=== PATIENT | male | born 1940 | race Caucasian/White ===

== ENCOUNTER 2016-11-06 07:25 | Outpatient (CLI) | payer MEDICARE, OTHER | END 2016-11-06 07:26 | disposition home or self-care (01) | DX: E78.5 Hyperlipidemia, unspecified (principal); E11.9 Type 2 diabetes mellitus without complications; Z12.5 Encounter for screening for malignant neoplasm of prostate; I25.10 Atherosclerotic heart disease of native coronary artery without angina pectoris; E29.1 Testicular hypofunction; I10 Essential (primary) hypertension | CPT/HCPCS: 36415; 80053; 80061; 83036; 84403; G0103 ==

== ENCOUNTER 2016-11-27 12:53 | Outpatient (CLI) | payer MEDICARE, OTHER | END 2016-11-27 12:54 | disposition home or self-care (01) | DX: R01.1 Cardiac murmur, unspecified (principal); I35.0 Nonrheumatic aortic (valve) stenosis; I51.7 Cardiomegaly; I10 Essential (primary) hypertension; E78.5 Hyperlipidemia, unspecified; Z95.5 Presence of coronary angioplasty implant and graft; Z87.891 Personal history of nicotine dependence ==

== ENCOUNTER 2016-12-25 16:00 | Outpatient (CLI) | payer MEDICARE, OTHER | END 2016-12-25 23:59 | disposition home or self-care (01) | LOC: LAB.R 16:00 | PROVIDERS: ATTEND Family Medicine | DX: R10.9 Unspecified abdominal pain (principal) | CPT/HCPCS: 87086 ==

== ENCOUNTER 2016-12-26 16:40 | Outpatient (CLI) | payer MEDICARE, OTHER ==
--- NOTE | 2016-12-27 18:20 | CT Report ---
NONCONTRAST CT SCAN OF THE ABDOMEN AND PELVIS: 12/26/2016 CLINICAL HISTORY: Left flank pain. COMPARISON: None. TECHNIQUE: Axial, coronal and sagittal reconstruction images of the abdomen and pelvis were done at 5 x 5 mm intervals. In accordance with CT protocol optimization, one or more of the following dose reduction techniques w ere utilized for this exam: automated exposure control, adjustment of mA and/or KV based on patient size, or use of iterative reconstructive technique. FINDINGS: Mild atelectasis is seen in the left lower lobe. Calcification is seen in the region of t he aortic valve with normal cardiac size. Liver appears normal. Spleen is normal. Pancreas shows no significant abnormality. Surgical clips are seen in the elisabet hepatis related to prior cholecystectomy. No significant dilatation of the com mon hepatic and common bile ducts is noted. Adrenal glands are normal. Right kidney demonstrates a benign cyst in the mid portion of this kidney measuring 0.9 cm. There is a suggestion of a minute calculus in association with the upper pole martha ix of the right kidney. Right ureter shows no calculi. Left kidney demonstrates two benign peripelv ic cysts. These measure 2.0 cm and 1.5 cm, respectively. There is also a benign cyst along the medi al inferior aspect of the left kidney. Pyelocalyceal system is not distended. There is a 1.3 cm x 1 .0 cm calculus in a lower pole xochitl of the left kidney. Left ureter shows no significant abnormalit y. Bladder appears normal. Patient's prostate demonstrates mild to moderate enlargement with calcif ication. Periaortic and pericaval region demonstrates vascular calcification in the abdominal aorta and its il iac branches. Small abdominal aortic aneurysm is seen in the infrarenal aspect of the abdominal aorta measuring 3 c m x 3 cm. Bowel gas pattern demonstrates the colon to show no diverticula. The appendix is not definitely seen . Small bowel appears normal. Bones demonstrate osteoarthritis of the lumbar spine with significant degenerative disk disease seen at L2-3, L4-5 and L5-S1. Evidence of bilateral laminectomy is noted at L3, L4 and L5. IMPRESSION: MINUTE CALCULUS IS SUGGESTED IN THE UPPER POLE OF THE RIGHT KIDNEY. A 1.3 CM X 1.0 CM CALCULUS IS NOTED IN THE LOWER POLE XOCHITL OF THE LEFT KIDNEY. TWO SMALL LEFT PERIPELVIC CYSTS ARE SEEN WITH A SMALL CYST ALSO NOTED IN THE RIGHT KIDNEY. SURGICAL CLIPS ARE NOTED IN THE ELISABET HEPATIS A RESULT OF A PRIOR CHOLECYSTECTOMY. MILD ABDOMINAL AORTIC ANEURYSM INVOLVING THE INFRARENAL PORTION OF THE ABDOMINAL AORTA AND MEASURING 3 CM X 3 CM. SIGNIFICANT DEGENERATIVE DISK DISEASE IS NOTED IN THE LUMBAR SPINE WITH BILATERAL LAMINECTOMY NOTED A T L3, L4 AND L5. JOB #: [id number] EXT JOB #:[id number]
== END 2016-12-26 16:41 | disposition home or self-care (01) ==
LOC: DI 16:40
PROVIDERS: ATTEND Family Medicine
DX: N20.0 Calculus of kidney (principal); N28.1 Cyst of kidney, acquired; Z90.49 Acquired absence of other specified parts of digestive tract; I71.4 Abdominal aortic aneurysm, without rupture; M51.36 Other intervertebral disc degeneration, lumbar region
CPT/HCPCS: 74176

== ENCOUNTER 2017-06-26 08:00 | Outpatient (CLI) | payer MEDICARE, OTHER ==
[2017-06-26 13:12] LABS: ALBUMIN/GLOBULIN RATIO 1.4 (1.0-2.2); BILIRUBIN,TOTAL 0.6 mg/dL (0.2-1.0); BUN - BLOOD UREA NITROGEN 28 mg/dL (6-20); CALCIUM 9.2 mg/dL (8.5-10.3); CARBON DIOXIDE - CO2 23 mmol/L (21-32); CHLORIDE 105 mmol/L (101-111); CHOL/HDL RATIO 3.3 (<5.0); CHOLESTEROL 174 mg/dL; CREATININE 1.1 mg/dL (0.6-1.2); GFR - MDRD 65 (>89); GLUCOSE 126 mg/dL (70-100); HDL CHOLESTEROL 52 mg/dL; LDL/HDL RATIO 1.8 (<3.6); POTASSIUM 4.1 mmol/L (3.5-5.0); SODIUM 135 mmol/L (135-145); TOTAL PROTEIN 7.3 g/dL (6.7-8.2); TRIGLYCERIDES 157 mg/dL; VLDL CHOLESTEROL 31 mg/dL
[2017-06-26 13:26] LABS: HEMOGLOBIN A1C 0.65 g/dL
== END 2017-06-26 08:01 | disposition home or self-care (01) ==
LOC: LAB.WCP 08:00
PROVIDERS: ATTEND Family Medicine
DX: I25.10 Atherosclerotic heart disease of native coronary artery without angina pectoris (principal); R01.1 Cardiac murmur, unspecified; E11.9 Type 2 diabetes mellitus without complications; E29.1 Testicular hypofunction; I10 Essential (primary) hypertension; E78.5 Hyperlipidemia, unspecified
CPT/HCPCS: 36415; 80053; 80061; 83036

== ENCOUNTER 2017-07-25 14:54 | Outpatient (CLI) | payer MEDICARE, OTHER | END 2017-07-25 14:55 | disposition home or self-care (01) | LOC: SC 14:54 | PROVIDERS: ATTEND Specialist | DX: G47.33 Obstructive sleep apnea (adult) (pediatric) (principal) | CPT/HCPCS: 99214; G0463; 99212 ==

== ENCOUNTER 2017-10-02 10:37 | Outpatient (CLI) | payer MEDICARE, OTHER | END 2017-10-02 10:38 | disposition home or self-care (01) | LOC: SC 10:37 | PROVIDERS: ATTEND Nurse Practitioner Family | DX: G47.33 Obstructive sleep apnea (adult) (pediatric) (principal) | CPT/HCPCS: 99214; G0463; 99212 ==

== ENCOUNTER 2017-12-23 08:00 | Outpatient (CLI) | payer MEDICARE, OTHER ==
[2017-12-23 13:50] LABS: ALBUMIN 4.4 g/dL (3.2-5.5); ALBUMIN/GLOBULIN RATIO 1.4 (1.0-2.2); ALKALINE PHOSPHATASE 78 IU/L (42-121); ALT ALANINE AMINOTRANSFERASE 28 IU/L (10-60); AST ASPARTATE AMINOTRANSFERASE 28 IU/L (10-42); BILIRUBIN,TOTAL 0.9 mg/dL (0.2-1.0); BUN - BLOOD UREA NITROGEN 33 mg/dL (6-20); CALCIUM 9.4 mg/dL (8.5-10.3); CARBON DIOXIDE - CO2 23 mmol/L (21-32); CHLORIDE 102 mmol/L (101-111); CHOL/HDL RATIO 3.9 (<5.0); CHOLESTEROL 165 mg/dL; CREATININE 1.1 mg/dL (0.6-1.2); GFR - MDRD 65 (>89); GLUCOSE 118 mg/dL (70-100); HDL CHOLESTEROL 42 mg/dL; LDL CHOLESTEROL,CALCULATED 85 mg/dL; SODIUM 136 mmol/L (135-145); TOTAL PROTEIN 7.5 g/dL (6.7-8.2); VLDL CHOLESTEROL 38 mg/dL
[2017-12-23 13:56] LABS: HB2 TOTAL 17.8 g/dL; HEMOGLOBIN A1C 0.69 g/dL; HEMOGLOBIN A1C % 5.7 % (4.6-6.2)
== END 2017-12-23 08:01 ==
LOC: LAB.WCP 08:00
PROVIDERS: ATTEND Family Medicine
DX: E11.9 Type 2 diabetes mellitus without complications (principal); N20.2 Calculus of kidney with calculus of ureter; I25.10 Atherosclerotic heart disease of native coronary artery without angina pectoris; I10 Essential (primary) hypertension
CPT/HCPCS: 36415; 80053; 80061; 83036; 83721

== ENCOUNTER 2018-04-17 14:00 | Outpatient (CLI) | payer MEDICARE, OTHER | END 2018-04-17 14:01 | disposition home or self-care (01) | LOC: SC 14:00 | PROVIDERS: ATTEND Nurse Practitioner Family | DX: G47.33 Obstructive sleep apnea (adult) (pediatric) (principal) | CPT/HCPCS: 99213; G0463; 99212 ==

== ENCOUNTER 2019-11-18 16:29 | Emergency (ER) | payer MEDICARE, OTHER ==
[2019-11-18] MEDS ORDERED: ASPIRIN CHEW 81 MG TABLET PO STA (16:38)
--- NOTE | 2019-11-18 16:45 | ED Physician Documentation ---
PD HPI CHEST PAIN - Stated complaint Stated Complaint: CHEST TIGHTNESS - Chief complaint Chief Complaint: Cardiac - History obtained from History obtained from: Patient (79-year-old gentleman with history of coronary disease, remote stenting x1. The last 3 days he has been inexplicably fatigued and easily exhausted. He is also had some dyspnea on exertion. Last night he had 10 minutes of chest tightness at rest. Also recurred briefly this morning. Currently pain-free. No pedal edema or calf pain.) Review of Systems Ten Systems: 10 systems reviewed and negative Constitutional: reports: Fatigue. denies: Fever, Chills, Myalgias Nose: denies: Rhinorrhea / runny nose Throat: denies: Sore throat Cardiac: reports: Chest pain / pressure. denies: Pedal edema, Calf pain Respiratory: reports: Dyspnea. denies: Cough PD PAST MEDICAL HISTORY - Past Medical History Cardiovascular: Hypertension, High cholesterol, Coronary artery disease, DC, Murmur Respiratory: Sleep apnea Psych: Depression Musculoskeletal: Osteoarthritis, Chronic back pain Derm: Rosacea - Past Surgical History General: Cholecystectomy, Appendectomy Ortho: Knee replacement - Present Medications Home Medications: Ambulatory Orders Medication Instructions Recorded Confirmed Amitriptyline HCl 50 mg PO DAILY PM 11/18/19 11/18/19 Atorvastatin Calcium 40 mg PO DAILY 11/18/19 11/18/19 Budesonide [Budesonide EC] 2 cap PO DAILY 11/18/19 11/18/19 Cholecalciferol [Vitamin D3] 5,000 unit PO DAILY 11/18/19 11/18/19 Glucosamine HCl 2 tab PO DAILY 11/18/19 11/18/19 Losartan [Cozaar] 100 mg PO DAILY 11/18/19 11/18/19 Meloxicam 15 mg PO DAILY 11/18/19 11/18/19 Metoprolol Succinate 100 mg PO DAILY PM 11/18/19 11/18/19 Niacin 1,000 mg PO DAILY 11/18/19 11/18/19 Nitroglycerin [Nitrostat] 0.4 mg SL Q5MIN PRN MDD 1.2 11/18/19 11/18/19 [place]-3/Dha/Epa/Fish Oil [Fish Oil 1,000 mg PO DAILY 11/18/19 11/18/19 1,000 mg Softgel] Sertraline [Zoloft] 50 mg PO DAILY 11/18/19 11/18/19 Turmeric 1,650 mg PO BID 11/18/19 11/18/19 Ubidecarenone [Co Q-10] 300 mg PO DAILY 11/18/19 11/18/19 hydroCHLOROthiazide [Hydrodiuril] 25 mg PO DAILY 11/18/19 11/18/19 traMADol [Ultram] 50 mg PO Q4-6H 11/18/19 11/18/19 - Allergies Allergies/Adverse Reactions: Allergies Allergy/AdvReac Type Severity Reaction Status Date / Time meperidine [From Demerol] Allergy Anaphylaxis Verified 11/18/19 16:42 - Family History Family history: reports: Non contributory PD ED PE NORMAL - Vitals Vital signs reviewed: Yes - General General: Alert and oriented X 3, No acute distress - HEENT HEENT: PERRL, EOMI, Pharynx benign - Neck Neck: Supple, no meningeal sign, No bony TTP - Cardiac Cardiac: RRR (Soft systolic heart murmur heard best at the right upper sternal border) - Respiratory Respiratory: No respiratory distress, Clear bilaterally - Abdomen Abdomen: Soft, Non tender - Back Back: No CVA TTP, No spinal TTP - Derm Derm: Normal color, Warm and dry - Extremities Extremities: No edema, No calf tenderness / cord - Neuro Neuro: Alert and oriented X 3, Normal speech Results - Vitals Vitals: Vital Signs - 24 hr 11/18/19 11/18/19 16:40 17:32 Temperature 36.6 C Heart Rate 62 54 L Respiratory 16 16 Rate Blood Pressure 142/89 H 126/76 O2 Saturation 98 96 Oxygen O2 Source Room air - EKG (time done) 1638 Rate: Rate (enter#) (59) Rhythm: NSR [place]: Normal Intervals: Normal NH QRS: Normal Ischemia: Non specific changes (Possibly some very mild ST elevation in V5 and V6. It would be submillimeter though. Would not be diagnostic for STEMI.) 1727 Rate: Rate (enter#) (52) Rhythm: NSR [place]: Normal Intervals: Normal NH QRS: Normal Ischemia: Other (Much better tracing (less atrifact) than the first EKG, no evidence of ischemia.) Computer interpretation: Agree with computer - Labs Labs: Laboratory Tests 11/18/19 11/18/19 11/18/19 16:59 16:59 16:59 WBC 7.9 RBC 4.66 L Hgb 15.0 Hct 44.4 MCV 95.3 H MCH 32.2 H MCHC 33.8 RDW 13.5 Plt Count 200 MPV 10.1 Neut # (Auto) 4.9 Lymph # (Auto) 2.1 [place] # (Auto) 0.7 Eos # (Auto) 0.1 Baso # (Auto) 0.1 Absolute Nucleated RBC 0.00 Nucleated RBC % 0.0 Sodium 135 Potassium 3.9 Chloride 102 Carbon Dioxide 24 Anion Gap 9.0 BUN 31 H Creatinine 1.3 H Estimated GFR (MDRD) 54 L Glucose 95 Calcium 9.3 Total Bilirubin 0.7 AST 58 H ALT 90 H Alkaline Phosphatase 93 Troponin I High Sens 6.8 Total Protein 7.4 Albumin 4.3 Globulin 3.1 Albumin/Globulin Ratio 1.4 Lipase 31 PD MEDICAL DECISION MAKING - ED course Complexity details: reviewed old records (Negative stress 5 years ago) ED course: 79-year-old gentleman with history of known coronary disease presents with concerning fatigue and typical rest pain episode last night. His biomarkers are negative but he is at high risk given the history. Currently due to staffing issues we are unable to perform urgent stress testing at this facility and we called scheduled for potential transfer but they are full. Subsequently called [facility] and accepted there by Dr. Meadows. He received aspirin and Lovenox full dose here. Departure - Departure Disposition: 02 Transfer Acute Care Hosp Clinical Impression: Unstable angina Condition: Stable
[2019-11-18 17:17] LABS: BASOPHILS # (AUTO) 0.1 10^3/uL (0.0-0.1); BASOPHILS % (AUTO) 0.6 %; EOSINOPHILS # (AUTO) 0.1 10^3/uL (0.0-0.7); EOSINOPHILS % (AUTO) 1.3 %; LYMPHOCYTES # (AUTO) 2.1 10^3/uL (1.5-3.5); MEAN CORPUSCULAR HEMOGLOBIN 32.2 pg (27.0-31.0); MEAN CORPUSCULAR HGB CONC 33.8 g/dL (32.0-36.0); MEAN CORPUSCULAR VOLUME 95.3 fL (80.0-94.0); MEAN PLATELET VOLUME 10.1 fL (7.4-11.4); MONOCYTES # (AUTO) 0.7 10^3/uL (0.0-1.0); MONOCYTES % (AUTO) 8.5 %; NEUTROPHILS # (AUTO) 4.9 10^3/uL (1.5-6.6); NEUTROPHILS % (AUTO) 62.1 %; PLT - PLATELET COUNT 200 10^3/uL (130-450); RED BLOOD COUNT 4.66 10^6/uL (4.70-6.10); RED CELL DISTRIBUTION WIDTH 13.5 % (12.0-15.0); WHITE BLOOD COUNT 7.9 x10^3/uL (4.8-10.8)
--- NOTE | 2019-11-18 17:19 | XRAY Report ---
Reason: chest pain Procedure Date: 11/18/2019 Accession Number: [id number] / [id number] Procedure: XR - Chest 1 View X-Ray CPT Code: 13909 Final Report FULL RESULT: EXAM: CHEST RADIOGRAPHY EXAM DATE: 11/18/2019 05:03 PM. CLINICAL HISTORY: Chest pain pressure. Dyspnea on exertion. COMPARISON: 07/14/2011 7:00 PM. TECHNIQUE: Upright AP view. FINDINGS: Lungs/Pleura: No focal opacities evident. No interstitial abnormality or pulmonary vascular congestion. No pleural effusion. No pneumothorax. Mediastinum: Within exam limitations, the cardiomediastinal contour is normal. Other: None. IMPRESSION: Normal single view chest. RADIA
[2019-11-18 17:31] LABS: ALBUMIN 4.3 g/dL (3.2-5.5); ALBUMIN/GLOBULIN RATIO 1.4 (1.0-2.2); BILIRUBIN,TOTAL 0.7 mg/dL (0.2-1.0); CALCIUM 9.3 mg/dL (8.5-10.3); CREATININE 1.3 mg/dL (0.6-1.2); TOTAL PROTEIN 7.4 g/dL (6.7-8.2)
[2019-11-18 17:32] VITALS: BP 126/76
[2019-11-18] MEDS ORDERED: ENOXAPARIN 100 MG/ML SYRINGE SUBQ STA (17:56)
== END 2019-11-18 20:00 | disposition short-term general hospital (02) ==
LOC: ED 16:29
DX: I20.0 Unstable angina (principal); I10 Essential (primary) hypertension; Z95.5 Presence of coronary angioplasty implant and graft; I25.2 Old myocardial infarction; G47.30 Sleep apnea, unspecified; R01.1 Cardiac murmur, unspecified; R53.83 Other fatigue
CPT/HCPCS: 36415; 71045; 80053; 83690; 84484; 85025; 93005; 96372; 99284; 99285; A9270; J1650

== ENCOUNTER 2019-11-18 20:17 | Outpatient (CLI) | payer MEDICARE, OTHER | END 2019-11-18 20:18 | disposition short-term general hospital (02) | LOC: EMS 20:17 | PROVIDERS: ATTEND Surgery | DX: I20.0 Unstable angina (principal) | CPT/HCPCS: A0425; A0426 ==

== ENCOUNTER 2022-07-10 13:05 | Outpatient (CLI) | payer MEDICARE, OTHER ==
[2022-07-10 13:56] VITALS: BP 130/76
--- NOTE | 2022-07-10 13:56 | SLEEP CARE CONSULTATION ---
Information from patient questionnaire entered by Flako Hermosillo. I have reviewed and concur with the information entered by Flako Hermosillo. This document represents the service I personally performed and the decisions made by me, Gena Harrison ARNP. History of Present Illness Service Date and Time: 07/10/2022 1305 Reason for Visit: New patient, sleep apnea on CPAP therapy, Re-establish care Chief Complaint: reports: Other (UPDATE SUPPLIES) Usual bedtime: 8PM Time it takes to fall asleep: 1HR Snores at night: No Observed to quit breathing while asleep: Yes Sleeps alone due to snoring: No Number of times waking at night: 1 Reasons for waking at night: reports: Bathroom Toss, Turn, or Twitch while sleeping: Yes Recalls having dreams: Yes Usually gets out of bed at: 7AM Feels refreshed in the morning: Yes Morning headache: No Sleepy or fatigued during the day: No Ever fallen asleep while driving: No Takes day naps: No Dreams during day naps: No Prior sleep studies: Yes ([facility]) Additional HPI information: REED JAMA was previously diagnosed to have severe, AHI 57.9, obstructive sleep apnea-hypopnea syndrome and come in today to re-establish care for CPAP therapy. - Parasomnia Symptoms Ever been unable to move upon waking from sleep: No Walks in sleep: No Talks in sleep: No Ever acted out dreams in sleep: No Ever felt weak in the knees when startled or emotional: No Bothered by creepy, crawly, restless sensations in legs: No Problems with memory or concentration: Yes CPAP Compliance Data - Data Reviewed with Patient Average duration of nightly device use: 11 hours 53 minutes Compliance rate %: 92 (83/90 days used) Current pressure setting (cmH2O): 10-16 Average residual AHI: 4.5 Central apnea: 3.7 Obstructive apnea: 0.1 Hypopnea: 0.7 Compliance data discussion: Patient will wear his mask for a couple hours before going to sleep. He used to get supplies from [employer] but he has not got any supplies in a long time. He has a ResMed Airsense 10. He is using a nasal cushion, ResMed N20. He is in need for supplies. Subjective Patient concerns: denies: aerophagia, mask discomfort, air blowing in eyes, mask leak noise, condensation in mask/hose, nasal congestion, dry mouth, nose, throat, epistaxis Observed to snore while using device: No Current pressure setting perceived as: comfortable On therapy, patient: reports: sleeping better, awakening more refreshed, being more awake and alert during the day, more rested overall. 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 Patient is and lives in [place]. Have you smoked in the past 12 months: No Cigarettes per day (20/pack): 20 Years of smokin Quit date: 2001 Smoking Pack Years: 40.0 Alcohol use: Yes Alcohol amount and frequency: 1 OR 2 DRINKS 3 TIMES A WEEK Caffeine use: Yes Caffeine amount and frequency: 1 CUP 1 TIME A DAY Family History Family history of sleep disordered breathing: No Family Hx Sleep Apnea: Other: Snoring () Allergies and Home Medications Known drug allergies: Yes (DEMEROL) Drug allergies reviewed: Yes Home medication list reviewed: Yes (as listed in EMR) Review of Systems Weight loss over past 5 years: 32 lbs Cardiovascular: reports: high blood pressure Respiratory: reports: shortness of breath Gastrointestinal: reports: diarrhea, other (COLITIS). denies: heartburn Neurological: denies: headaches Psychiatric: reports: Attention Deficit Hyperactivity Ear/Nose/Throat: reports: dry mouth/throat Endocrine: denies: thyroid disease Musculoskeletal: reports: joint pain, back pain Physical Exam Vital signs obtained and entered by: FLAKO Diaz MA Blood Pressure: 130/76 (left arm) Cuff size: regular Heart Rate: 64 O2 Saturation: 97 Height: 5 ft 6 in Weight: 208 lb 9.6 oz Body Mass Index: 33.6 BMI Classification: Obese Neck circumference: 17.5 Heart: regular rate and rhythm Lungs: clear bilaterally Impression and Plan 1. Obstructive Sleep Apnea-Hypopnea Syndrome, severe, with good treatment compliance and good apnea control. On CPAP therapy, the patient has better sleep quality and is more rested overall. Patient has not been able to get supplies for a long time. Patient was informed that another DME can be used. I will have my patient day coordinator inform of DME options. A DWO prescription will then be made. Patient advised to contact this office if further supply problems. Patient's apnea severity and rationale for treatment to reduce apnea, improve sleep quality and reduce cardiovascular and cerebrovascular events was reviewed. I also reviewed the benefit of consistent device use of CPAP for hypertension, cardiac disease, attention deficit and depression. 2. Obesity, unspecified. Currently patients BMI is 33.6. He has been losing weight and will continue to try. Obesity increases the risk of apnea, CPAP pressure requirements and overall health risks especially cardiovascular and diabetes. Thus patient is advised to continue to try to lose weight. * Continue auto CPAP pressure at 10-16 cmH2O * Transfer DME * Update supplies * Notify me if snoring with mask or feeling that the pressure is too much or too little * Attempt to lose weight * Call this office if any problems using CPAP * Return for follow up in 1 year, or sooner if concerns arise Counseling Topics: Spare mask, Weight loss health impact Visit Type: In Office Time Spent with Patient (minutes): 31 Provider Statement: I spent 100% of the Face to Face Visit with the patient with greater than 50% spent counseling the patient and coordination of care.
== END 2022-07-10 13:06 | disposition home or self-care (01) ==
LOC: SC 13:05
PROVIDERS: ATTEND Nurse Practitioner Family
DX: G47.33 Obstructive sleep apnea (adult) (pediatric) (principal); E66.9 Obesity, unspecified; Z68.33 Body mass index [BMI] 33.0-33.9, adult; Z87.891 Personal history of nicotine dependence
CPT/HCPCS: 99203; G0463; 99212

== ENCOUNTER 2023-07-10 12:45 | Outpatient (CLI) | payer MEDICARE, OTHER ==
--- NOTE | 2023-07-10 13:26 | Sleep Patient Instructions ---
Sleep Center Visit Summary - Patient Visit Information Reason for Visit: Annual Visit - Patient Instructions Additional Instructions: You will continue with CPAP therapy with pressure changed to 12-16 cmH2O. A supply prescription will be updated with your DME. We encourage you to continue to try to lose weight. Please follow up with the sleep care office in 1 year. - Clinic Information Contact: [facility] [address] [place] [address] [email or web address] T: [phone]
[2023-07-10 13:29] VITALS: BP 128/72; O2SAT 95
--- NOTE | 2023-07-10 13:29 | SLEEP CARE CONSULTATION ---
Information from patient questionnaire entered by Flako Hermosillo. I have reviewed and concur with the information entered by Flako Hermosillo. This document represents the service I personally performed and the decisions made by me, Gena Harrison ARNP. History of Present Illness Service Date and Time: 07/10/2023 1245 Previous diagnosis: Severe, Obstructive Sleep Apnea-Hypopnea Syndrome AHI: 57.9 (in 2018) Reason for follow up: annual (LAST SEEN 07/2022) Equipment type: CPAP (ResMed Airsense 10, s/u 08/2022; SD CARD NEEDED) Equipment obtained from: Other ([employer], getting supplies) Mask style: Nasal Mask brand: Resmed (N30) Backup mask available: Yes Last cushion change: couple months ago Prior sleep studies: Yes ([facility]) HPI additional information: REED JAMA was diagnosed to have severe, AHI 57.9, obstructive sleep apnea- hypopnea syndrome and returned today for CPAP therapy annual follow-up. Sleep Study - Results Prior sleep studies: Yes ([facility]) CPAP Compliance Data - Data Reviewed with Patient Average duration of nightly device use: 11 hours 7 minutes Compliance rate %: 89 (325/365 days used) Current pressure setting (cmH2O): 10-16 Average residual AHI: 4.5 Central apnea: 1.2 Obstructive apnea: 0 Hypopnea: 3.2 Average large leak: 3.9 L/min Subjective Missed days of use due to: reports: travel Patient concerns: reports: dry mouth, nose, throat (dry mouth, runs out of water when using it for long nights). denies: aerophagia, mask discomfort, air blowing in eyes, mask leak noise, condensation in mask/hose, nasal congestion, epistaxis Observed to snore while using device: No Current pressure setting perceived as: comfortable On therapy, patient: reports: sleeping better, awakening more refreshed, being more awake and alert during the day, more rested overall. denies: drowsiness while driving Initial [place] Sleepiness Scale score: 5 (06/22/22) Current [place] Sleepiness Scale score: 5 (07/10/23) Allergies and Home Medications Known drug allergies: Yes (as listed) Drug allergies reviewed: Yes Home medication list reviewed: Yes (no changes) Allergy and home medication list: Allergies lisinopril Allergy (Verified 07/09/23 15:33) Unknown meperidine [From Demerol] Allergy (Verified 07/09/23 15:33) Anaphylaxis propoxyphene [From Darvon] Allergy (Verified 07/09/23 15:33) Unknown Review of Systems Review of systems same as previous: Yes (NO CHANGE) Physical Exam Vital signs obtained and entered by: FLAKO Diaz MA Blood Pressure: 128/72 (LEFT ARM) Cuff size: regular Heart Rate: 68 O2 Saturation: 95 Height: 5 ft 6 in Weight: 210 lb 12.8 oz (with clothes on) Body Mass Index: 34.0 BMI Classification: Obese Impression and Plan 1. Obstructive Sleep Apnea-Hypopnea Syndrome, severe, with good treatment compliance and good apnea control. On CPAP therapy, the patient has better sleep quality and is more rested overall. Patient has significant improvement of their sleep apnea and is satisfied with current CPAP therapy. Patient states sometimes he gets dry mouth a lot because he likes to wear his mask while he is laying in bed and sometimes has the mask on for 11 or more hours. He also feels sometimes that the pressure is a little too low and I will adjust his pressure to 12-16 cm H2O and he wanted the ramp starting pressure turned off. These changes were made on the machine and he will let me know if the changes are uncomfortable for further adjustment as needed. Patient's apnea severity and rationale for treatment to reduce apnea, improve sleep quality and reduce cardiovascular and cerebrovascular events was reviewed. I also reviewed the benefit of consistent device use of CPAP for hypertension, cardiac disease (CHD) and attention deficit. 2. Obesity, unspecified. Currently patients BMI is 34. Obesity increases the risk of apnea, CPAP pressure requirements and overall health risks especially cardiovascular and diabetes. Thus patient is advised to lose weight. * Change auto CPAP pressure to 12-16 cmH2O * Update supply prescription * Notify me if snoring with mask or feeling that the pressure is too much or too little * Attempt to lose weight * Call this office if any problems using CPAP * Return for follow up in 1 year, or sooner if concerns arise Counseling Topics: Spare mask, Weight loss health impact Prescriptions: Device supplies Follow up with Sleep Care in: 1 year Visit Type: In Office Time Spent with Patient (minutes): 23 Provider Statement: I spent 100% of the Face to Face Visit with the patient with greater than 50% spent counseling the patient and coordination of care.
== END 2023-07-10 12:46 | disposition home or self-care (01) ==
LOC: SC 12:45
PROVIDERS: ATTEND Nurse Practitioner Family
DX: G47.33 Obstructive sleep apnea (adult) (pediatric) (principal); E66.9 Obesity, unspecified; Z68.34 Body mass index [BMI] 34.0-34.9, adult
CPT/HCPCS: 99213; G0463; 99212

== ENCOUNTER 2024-02-21 13:42 | Outpatient (CLI) | payer MEDICARE, OTHER ==
--- NOTE | 2024-02-21 15:37 | XRAY Report ---
PROCEDURE: Hips w/Pelvis 2-3V BL INDICATIONS: TTP OF ILLIAC CREST, CHRONIC LOW BACK PAIN TECHNIQUE: 3 view(s) of the hips were acquired. COMPARISON: None. FINDINGS: Bones: No fractures or dislocations. No suspicious bony lesions. The visualized pelvic ring appear s intact. Nonuniform joint space narrowing of the hips, with associated osteophytosis. Soft tissues: No suspicious soft tissue calcifications or masses. Vascular calcifications. Pelvic p hleboliths. IMPRESSION: No acute bony abnormality. Mild to moderate bilateral hip osteoarthritis. Kellgren-Montez scale of osteoarthritis: 2. Reviewed by: Isidro Campbell MD on 02/21/2024 2:36 PM AKTRACI Approved by: Isidro Campbell MD on 02/21/2024 2:36 PM AKDT Station ID: [id number]
== END 2024-02-21 13:43 | disposition home or self-care (01) ==
LOC: DI.N 13:42
PROVIDERS: ATTEND Physician Assistant
DX: M16.0 Bilateral primary osteoarthritis of hip (principal)